=== PATIENT | female | born 1965 | race Caucasian/White ===

== ENCOUNTER 2018-05-24 04:23 | Emergency (ER) | payer OTHER ==
[~2018-05-24] VITALS: Ht 165.1 cm; Wt 81.6 kg
[2018-05-24 04:50] VITALS: BP 134/88
[2018-05-24] MEDS ORDERED: LIDOCAINE VISCOUS 2% UD 15 ML UDC ONE (05:06)
[2018-05-24] MEDS ORDERED: LIDOCAINE VISCOUS 2% UD 15 ML UDC MM ONE (05:30)
[2018-05-24] MEDS ORDERED: HYDROCODONE/APAP 5/325MG 1 EACH TABLET ONE (05:43)
[2018-05-24] MEDS ORDERED: HYDROCODONE/APAP 5/325MG 1 EACH TABLET PO ONE (06:00)
== END 2018-05-24 05:52 | disposition home or self-care (01) ==
LOC: ER 04:25
DX: T16.1XXA Foreign body in right ear, initial encounter (principal); X58.XXXA Exposure to other specified factors, initial encounter; Y93.89 Activity, other specified; Y92.89 Other specified places as the place of occurrence of the external cause; Y99.8 Other external cause status
CPT/HCPCS: 69200; 99284; A4606; Z7610